=== PATIENT | female | born 1955 | race Caucasian/White ===

== ENCOUNTER 2023-06-01 08:46 | Oncology outpatient (recurring) (ONCR) | payer MEDICARE, OTHER, SELFPAY ==
[2023-06-01 10:20] LABS: Basophils % 0.4 %; Hematocrit 45.8 % (36-47); Lymphocytes # 1.2 10^3/uL (0.8-4.8); Lymphocytes % 16.7 %; Mean Corpuscular HGB Conc 31.9 g/dL (30-55); Mean Corpuscular Hemoglobin 29.1 pg (27-33); Mean Corpuscular Volume 91.2 fl (85-98); Mean Platelet Volume 8.5 fL (7.4-10.4); Monocytes # 0.5 10^3/uL (0.2-0.9); Monocytes % 6.7 %; Neutrophils # 5.41 10^3/uL (1.8-7.7); Neutrophils % 75.9 %; Nucleated Red Blood Cells % 0 %; Platelet Count 264 10^3/cmm (157-399); Red Blood Count 5.02 10^6/uL (3.85-5.65); Red Cell Distribution Width 13.4 % (12.1-15.1); White Blood Count 7.13 10^3/uL (3.29-11.43)
[2023-06-01 10:56] LABS: Alanine Aminotransferase 21 U/L (0-33); Albumin Level 4.1 g/dL (3.5-5.2); Alkaline Phosphatase 177 U/L (35-105); Anion Gap 12.3 (5-19); Aspartate Amino Transferase 18 U/L (0-32); Blood Urea Nitrogen 22 mg/dL (8-23); Calcium 9.3 mg/dL (8.5-10.5); Carbon Dioxide 24 mmol/L (22-29); Chloride 108 mmol/L (98-107); Free T4 Free Thyroxine 1.09 ng/dL (0.82-1.77); Globulin 2.9 g/dL (1.3-4.6); Glomerular Filtration Rate 62.1 mL/min (90-130); Glucose 111 mg/dL (65-115); Osmolality Calculated 294 mOsm/kg (285-295); Potassium 4.3 mmol/L (3.5-5.1); Sodium 140 mmol/L (136-145); Total Bilirubin 0.3 mg/dL (0.15-1.2)
== END 2023-06-29 23:59 | disposition home or self-care (01) ==
PROVIDERS: Visit Provider Internal Medicine
DX: R53.83 Other fatigue (principal); C34.12 Malignant neoplasm of upper lobe, left bronchus or lung; C34.32 Malignant neoplasm of lower lobe, left bronchus or lung; Z79.899 Other long term (current) drug therapy
CPT/HCPCS: 36415; 80053; 84439; 84443; 85025; 99204

== ENCOUNTER 2023-07-04 12:03 | Outpatient (CLI) | payer MEDICARE, OTHER, SELFPAY ==
--- NOTE | 2023-07-04 12:30 | CT_ITS ---
WS: [id number] CT chest w con* [id number] HISTORY: History of lung cancer. TECHNIQUE: Axial imaging performed through the thorax. Coronal and sagittal reformats are submitted. All CT scans at [facility] use at least one of these dose optimization techniques: automated exposure control; mA and/or kV adjustment per patient size (includes targeted exams where dose is mat ched to clinical indication); or iterative reconstruction. CONTRAST: Omnipaque 350; 100 mL IV. DLP: 565.45 mGy.cm COMPARISON: 04/13/2023 and PET/CT 10/29/2021 Lungs and central airway: Poor inspiration. Decreased lung volumes with dependent changes. There is b reathing motion artifact. No pulmonary nodule or mass is identified. Pleura: Normal. No pleural effusion. Heart and pericardium: Normal size heart. Coronary artery calcifications. Mediastinum and roddy: Mild bronchial wall thickening on the LEFT. There is also a small LEFT hilar ly mph node measuring 8 mm. No additional enlarged lymph nodes. Vessels: Mild atherosclerosis aorta. No aneurysm. Normal size pulmonary artery. Chest wall and lower neck: No soft tissue masses. Upper abdomen: Mild hepatic steatosis. Negative gallbladder. Cortical thinning and scarring at the up per pole of each kidney, LEFT greater than RIGHT. No adrenal mass. Osseous structures: Mild anterior wedging of T12. IMPRESSION: 1. Quality of this examination is compromised by poor inspiration and motion artifact. 2. There is very mild LEFT bronchial wall thickening. No pulmonary mass or nodule. 3. No significant mediastinal or hilar adenopathy. Note: There are no complete report associated with the prior chest CT of 04/13/2023 from an outside [facility]. If this report becomes available for review I would be happy to perform an addendum if there is an area of concern that was described in that report.
[2023-07-04] MEDS: iohexol 350 mg/mL 500 mL Btl (per mL) IV (12:59)
== END 2023-07-04 12:04 | disposition home or self-care (01) ==
LOC: RAD 12:04
PROVIDERS: PCP Family Medicine; Visit Provider Nurse Practitioner Family
DX: C34.12 Malignant neoplasm of upper lobe, left bronchus or lung (principal); C34.32 Malignant neoplasm of lower lobe, left bronchus or lung
CPT/HCPCS: 71260; Q9967

== ENCOUNTER 2023-07-13 14:16 | Oncology outpatient (recurring) (ONCR) | payer MEDICARE, OTHER, SELFPAY | END 2023-07-30 23:59 | disposition home or self-care (01) | PROVIDERS: PCP Family Medicine; Visit Provider Internal Medicine | DX: R53.83 Other fatigue (principal); C34.12 Malignant neoplasm of upper lobe, left bronchus or lung; C34.32 Malignant neoplasm of lower lobe, left bronchus or lung; Z79.899 Other long term (current) drug therapy | CPT/HCPCS: 99214 ==

== ENCOUNTER → 2023-12-11 12:27 | Outpatient (BNVA) | payer MEDICARE, OTHER, SELFPAY | PROVIDERS: PCP Family Medicine; Visit Provider Internal Medicine | DX: R07.9 Chest pain, unspecified (principal) | CPT/HCPCS: 93005; 99214 ==

== ENCOUNTER 2023-12-21 09:23 | Outpatient (CLI) | payer MEDICARE, OTHER, SELFPAY ==
[2023-12-21 09:44] VITALS: BMI 38.7
--- NOTE | 2023-12-21 09:48 | NMCV_ITS ---
NM jovan perf SPECT r/s* [id number] Stephanie Redd Age: 68 Gender: F : 1955 Exam Date: 12/21/2023 09:48 Ordering Phys: Carlos Gu M.D ([email or web address]) Technologist: REYNALDO Escamilla Exam Location: [facility] Indications: CHEST PAIN STRESS TEST [facility] IMAGE PROTOCOL Rest/Stress 1 Lexiscan Day Radiopharmaceutical Dose (mCi) Administration Site Administered by Rest: Tc-99m 10.5 IV REYNALDO Frazier Sestamibi Stress:Tc-99m 32.6 IV REYNALDO Frazier Sestamibi Rest: 21-Dec-2023 60 Discovery 630 Stress: 21-Dec-2023 30 Discovery 630 0.4mg Lexiscan. Images obtained in supine and prone position. SPECT RESULTS Technical Quality: Excellent Raw Data Analysis: Normal Image Corrections: No attenuation or motion correction applied Summed Stress Score: 0 Summed Rest Score: 3 Summed Difference Score: 0 PERFUSION FINDINGS SPECT images demonstrate homogeneous tracer distribution throughout the myocardium. FUNCTIONAL RESULTS (calculated via Gated SPECT) Stress Image LV EF (%): 77 Stress EDV (mL):75 TID: 1.05 Stress ESV (mL):17 FUNCTIONAL FINDINGS: There is normal left ventricular systolic function. IMPRESSIONS 1. Normal myocardial perfusion imaging with no evidence of ischemia 2. LV systolic function is normal Carlos Gu MD (Electronically Signed) Final Date: 22 Dec 2023 13:05 S
--- NOTE | 2023-12-21 09:48 | ECG_ITS ---
[facility] Test Date: 2023-12-21 Pat Name: Stephanie Redd Department: Room: Gender: Female Buyer Assistant: : 1955 Requested By: Carlos Gu Order Number: [id number] Ethel MD: Carlos Gu M.D. Interpretive Statements NAME OF STUDY: LEXISCAN SESTAMIBI STRESS TEST INDICATION: [Chest Pain; Shortness of Breath] Procedure: At the baseline, the blood pressure was 138/83 mmHg with a heart rate of 73 bpm. The electrocardiogram showed normal sinus rhythm, normal axis with normal ST and T's. The Lexiscan was infused over a period of 20 seconds. A total of 0.4 mg of Lexiscan was infused. The stress phase was continued for a total of 5 minutes. Heart rate was at the end of stress phase was 82 bpm and a blood pressure of 143/85 mmHg. The EKG at the peak infusion revealed normal sinus rhythm with no significant ST-T wave changes. Sestamibi was injected 20 seconds after the Lexiscan infusion. Blood pressure at the end of recovery phase was 138/90 mmHg with a heart rate of 77 bpm.PVCs seen in recovery Conclusion: 1. Normal EKG response to Lexiscan infusion 2. No Lexiscan induced chest pain or cardiac arrhythmia. 3. Normal blood pressure and heart rate response. 4. Sestamibi/sestamibi perfusion scan pending; see separate report. Electronically Signed On 12-25-2023 16:29:13 CDT by Carlos Gu M.D. [id number]
[2023-12-21] MEDS: regadenoson 0.4 Mg/5 ml Syringe 0.400000000000000022 MG IVP (11:25)
[2023-12-21 11:35] VITALS: BP 145/64; PULSE 66
== END 2023-12-21 09:24 | disposition home or self-care (01) ==
PROVIDERS: PCP Family Medicine; Visit Provider Internal Medicine
DX: R07.9 Chest pain, unspecified (principal); R06.02 Shortness of breath; I10 Essential (primary) hypertension; R06.00 Dyspnea, unspecified; F17.210 Nicotine dependence, cigarettes, uncomplicated; R94.31 Abnormal electrocardiogram [ECG] [EKG]
CPT/HCPCS: 36415; 78452; 93017; 93306; 96374; A9500; J2785

== ENCOUNTER 2024-01-09 14:02 | Oncology outpatient (recurring) (ONCR) | payer MEDICARE, OTHER, SELFPAY ==
[2024-01-09 14:47] LABS: Blood Urea Nitrogen 17 mg/dL (8-23); Glomerular Filtration Rate 54.8 mL/min (90-130)
[2024-01-09] MEDS: iohexol 350 mg/mL 500 mL Btl (per mL) IV (14:59)
--- NOTE | 2024-01-09 15:00 | CT_ITS ---
WS: [id number] CT CHEST TECHNIQUE: Contrast enhanced CT of the chest with coronal and sagittal reformatted images. CLINICAL INFORMATION: lung cancer COMPARISON: 07/04/2023 and PET/CT 10/29/2021 DLP: 655.[address] scans at [facility] use at least one of these dose optimization techniques: automated e xposure control; mA and/or kV adjustment per patient size (includes targeted exams where dose is matc hed to clinical indication); or iterative reconstruction. FINDINGS: Slightly spiculated LEFT upper lobe pulmonary nodule along the fissure measuring approximately 7-8 mm . This has increased in size today it was difficult to visualize on the prior study. Previously this measured approximately 6 to 7 mm. No mediastinal or hilar lymphadenopathy. Chronic emphysematous changes. Bibasilar atelectasis. Aortic calcification. Coronary calcification. N o mediastinal or hilar lymphadenopathy. No axillary lymphadenopathy. Fluid distended gallbladder part ially visualized. No gallbladder wall thickening. Mild diffuse fatty infiltration of the liver. Small splenule. Small esophageal hiatal hernia. Fatty atrophy of the pancreas. Aortic calcification. Adren al glands are normal. Mild thoracic curve. Mild thoracic kyphosis. CT/CT chest w con* [id number] IMPRESSION: 1. Slightly spiculated LEFT upper lobe pulmonary nodule along the fissure bett er visualized today measuring approximately 7-8 mm in maximum dimension. This m easures approximately 6 mm previous and on the prior outside study. Findings love spicious for small neoplasm This is borderline in size for evaluation by PET/CT . Otherwise recommend chest CT 6-month follow-up and pulmonary consultation. 2. Small nodule or bronchovascular thickening along the LEFT hilum. This is be st seen on the coronal imaging.
== END 2024-01-28 23:59 | disposition home or self-care (01) ==
PROVIDERS: PCP Family Medicine; Visit Provider Internal Medicine
DX: R53.83 Other fatigue (principal); C34.12 Malignant neoplasm of upper lobe, left bronchus or lung; C34.32 Malignant neoplasm of lower lobe, left bronchus or lung; Z79.899 Other long term (current) drug therapy
CPT/HCPCS: 71260; 82565; 84520; Q9967

== ENCOUNTER 2024-01-29 12:00 | Oncology outpatient (recurring) (ONCR) | payer MEDICARE, OTHER, SELFPAY ==
[2024-01-29 12:43] LABS: Basophils % 0.6 %; Eosinophils # 0.1 10^3/uL (0.0-0.8); Eosinophils % 1.3 %; Hematocrit 42.3 % (36-47); Lymphocytes # 1.2 10^3/uL (0.8-4.8); Lymphocytes % 16.9 %; Mean Corpuscular HGB Conc 31.4 g/dL (30-55); Mean Corpuscular Hemoglobin 28.4 pg (27-33); Mean Corpuscular Volume 90.4 fl (85-98); Mean Platelet Volume 8.6 fL (7.4-10.4); Monocytes # 0.5 10^3/uL (0.2-0.9); Neutrophils # 5.02 10^3/uL (1.8-7.7); Neutrophils % 73.8 %; Nucleated Red Blood Cells % 0 %; Platelet Count 269 10^3/cmm (157-399); Red Blood Count 4.68 10^6/uL (3.85-5.65); Red Cell Distribution Width 13.8 % (12.1-15.1); White Blood Count 6.81 10^3/uL (3.29-11.43)
[2024-01-29 13:14] LABS: Alanine Aminotransferase 23 U/L (0-33); Albumin Level 3.8 g/dL (3.5-5.2); Alkaline Phosphatase 256 U/L (35-105); Anion Gap 16.6 (5-19); Aspartate Amino Transferase 29 U/L (0-32); Blood Urea Nitrogen 21 mg/dL (8-23); Carbon Dioxide 24 mmol/L (22-29); Chloride 98 mmol/L (98-107); Globulin 3.3 g/dL (1.3-4.6); Glomerular Filtration Rate 54.8 mL/min (90-130); Glucose 157 mg/dL (65-115); Osmolality Calculated 286 mOsm/kg (285-295); Potassium 3.6 mmol/L (3.5-5.1); Sodium 135 mmol/L (136-145); Thyroid Stimulating Hormone 2.75 uIU/mL (0.27-4.20); Total Bilirubin 0.4 mg/dL (0.15-1.2); Total Protein 7.1 g/dL (6.6-8.7)
== END 2024-02-28 23:59 | disposition home or self-care (01) ==
PROVIDERS: PCP Family Medicine; Visit Provider Internal Medicine
DX: C34.12 Malignant neoplasm of upper lobe, left bronchus or lung; C34.32 Malignant neoplasm of lower lobe, left bronchus or lung; Z79.899 Other long term (current) drug therapy; F17.210 Nicotine dependence, cigarettes, uncomplicated
CPT/HCPCS: 36415; 80053; 84443; 85025; 99213

== ENCOUNTER 2024-03-05 10:08 | Outpatient (CLI) | payer MEDICARE, OTHER, SELFPAY ==
--- NOTE | 2024-03-05 11:30 | PETR_ITS ---
PROCEDURE INFORMATION: Exam: PET/CT Skull Base to Mid-thigh Exam date and time: 03/05/2024 11:19 AM Age: 69 years old Clinical indication: Condition or disease; Primary cancer: Left lobe lung neoplasm; Follow-up oncological assessment; Additional info: Staging LABS AND CLINICAL REPORTS: Glucose: 149 mg/dl Treatment strategy for malignancy (PET staging): Restaging (PS) TECHNIQUE: Imaging protocol: Following at least four-hour fasting and following the injection of radiopharmaceutical, low dose CT images were obtained. Then, PET images were obtained. Attenuation corrected images were constructed using the CT scan. Fused images of PET and CT were reviewed. The standardized uptake values (SUV) reported below are maximum values within a region of interest, expressed in gm/ml. Exam includes orbital meatal line to mid-thigh. Radiopharmaceutical: 11.54 mCi F-18 FDG (Fluorodeoxyglucose), IV. Time of imaging post radiopharmaceutical administration: 1 hour Injection site: Right antecubital COMPARISON: CT chest 01/09/2024, CT chest 07/04/2023, PT PET Scan 10/29/2021 12:16 PM FINDINGS: Brain: Visualized brain has normal physiologic uptake. Oral cavity: A low vertically oriented linear region of elevated uptake involving the anterior tongue is likely physiologic in nature, without a definite correlating lesion on the CT images. Assessment of this region is limited by streak artifact. Pharynx: No abnormal uptake. Larynx: Uptake in the region of the hyoid bone and larynx appears physiologic. Lungs, pleura and trachea: A radiotracer avid solid posterior left upper lobe nodule measures 1.1 x 0.8 cm (previously 7-[address] chest of 01/09/2024) on series 202, image 252, SUV max 12.4. Mild bilateral centrilobular emphysematous changes. Heart: Normal physiologic uptake. Mediastinal space: No abnormal uptake. Liver: No abnormal uptake. Gallbladder and biliary ducts: No abnormal uptake. Pancreas: No abnormal uptake. Spleen: No abnormal uptake. Adrenal glands: No discrete adrenal nodules are identified. Uptake in the left adrenal gland is new and demonstrates an SUV max 7.1 on image 171, and new uptake in the right adrenal gland demonstrates an SUV max 3.7 on image 186. Kidneys and ureters: Normal physiologic uptake. Stomach and bowel: No abnormal uptake. There are scattered colonic diverticula. Reproductive: The uterus is not identified, likely surgically absent. No abnormal uptake. Vasculature: No abnormal uptake. There are diffuse atherosclerotic changes. Lymph nodes: Elevated uptake within bilateral axillary lymph nodes is noted. These lymph nodes are similar in size since at least the prior PET-CT 10/29/2021, however, the uptake is new since the prior PET-CT. A left axillary lymph node measuring approximately 1.1 cm on image 271 is noted, SUV max 4.2. A more inferiorly located left axillary lymph node measures 2.3 x 1.0 cm on image 254, SUV max 9.3; a right axillary lymph node measures approximately 2.8 x 0.7 cm on image 254, SUV max 3.7. A right axillary lymph node measuring 1.5 x 0.7 cm demonstrates an SUV max 4.3 on image 265. A similar in size left inguinal region lymph node measuring 8 mm on image 84 is noted with new uptake, SUV max 3.9. Previously noted focal elevated uptake in the left hilar region on the prior PET-CT has significantly decreased, SUV max 4.0 (previously 6.7) on image 103. Skeleton: A focus of abnormal uptake in the right lateral aspect of the L5 vertebral body is new since the prior PET-CT, without a well-defined correlating lesion on the CT images, SUV max 5.5 on image 122. The region of uptake measures approximately 6 mm in diameter. Degenerative changes in the spine are noted an old, mild compression deformity of the T12 vertebral body is present. A posterolateral left 6th rib osteotomy is noted. Soft tissues: There are multifocal regions of benign-appearing muscular uptake, likely physiologic or inflammatory. Elevated uptake is identified in the intercostal musculature between the posterior left 6th and 7th ribs is noted near the 6th rib osteotomy site which is new since the prior PET-CT, SUV max 4.5 on image 233, without a correlating lesion on the CT images. METRICS: Mediastinal blood pool: SUV max 4.3, SUV mean 3.1 PET/PET skull to thigh SUBS [id number] IMPRESSION: 1. A solid left upper lobe nodule has increased in size compared with 01/09/2024 and demonstrates elevated uptake compatible with malignancy. 2. New uptake within bilateral axillary and left inguinal lymph nodes since the prior PET-CT. Although these lymph nodes have not changed in size since the prior PET-CT, malignant involvement cannot be excluded. Infectious or inflammatory uptake may alternatively account for this appearance. 3. Interval significant decrease in uptake in the left hilar region which may represent decreasing malignancy or inflammatory changes. 4. Uptake in the intercostal musculature adjacent to the left 6th rib osteotomy site is noted, likely inflammatory. A malignant etiology is less likely. 5. A single new small focus of elevated uptake in the osseous structures involving the L4 vertebral body on the right is present, possibly representing a metastasis. Consider dedicated lumbar spine MRI with and without contrast for further assessment. 6. New uptake within the bilateral adrenal glands is noted, without definitive evidence of nodularity on the CT images. This uptake may be physiologic or inflammatory in etiology. A malignant metastatic etiology is less likely but cannot be entirely excluded. 7. Additional nonurgent findings as detailed above.
== END 2024-03-05 10:09 | disposition home or self-care (01) ==
LOC: RAD 10:08
PROVIDERS: PCP Family Medicine; Visit Provider Internal Medicine Medical Oncology
DX: C34.32 Malignant neoplasm of lower lobe, left bronchus or lung (principal); C34.12 Malignant neoplasm of upper lobe, left bronchus or lung; R93.89 Abnormal findings on diagnostic imaging of other specified body structures; R59.0 Localized enlarged lymph nodes
CPT/HCPCS: 78815; A9552

== ENCOUNTER 2024-03-21 08:56 | Oncology outpatient (recurring) (ONCR) | payer MEDICARE, OTHER, SELFPAY | END 2024-03-30 23:55 | disposition home or self-care (01) | LOC: ONCMED 08:56 | PROVIDERS: PCP Family Medicine; Visit Provider Internal Medicine Medical Oncology | DX: C34.12 Malignant neoplasm of upper lobe, left bronchus or lung; F17.210 Nicotine dependence, cigarettes, uncomplicated; Z92.3 Personal history of irradiation | CPT/HCPCS: 99215 ==

== ENCOUNTER 2024-04-17 08:39 | Oncology outpatient (recurring) (ONCR) | payer MEDICARE, OTHER, SELFPAY ==
--- NOTE | 2024-04-17 10:25 | N.ONRAD NP_ITS ---
Radiation Oncology New Patient Visit Patient: Stephanie Redd MR#: [id number] : 1955> Age: 69> Sex: Female> Dictated by: Dr. Kendy Saunders Date of Service: 04/17/2024 Referring Physician(s) : Dr. Ingram Diagnosis: Squamous cell carcinoma left lung Radiotherapy to date: Summary > SBRT left lower lobe 2019 with 54 Miramontes in 3 fractions. Hypofractionated treatment in 2021 to the left endobronchial lesion for a total of 60 Miramontes Chief Complaint / History of Present Illness: Patient has had no real changes in her overall problems with her emphysema. She was having screening scans done and the most recent PET scan showed a left upper lobe mass that was 1.1 x 0.8 cm in size. There was also question of a questionable spot in L4. Subjectively she is actually doing fairly well. She has no real changes in cough or breathing. She did have a fall mid February and is still recovering from that. She also has been dealing with an inner ear infection and has had occasional pneumonia. She is here today to discuss SBRT to the left upper lobe. Her records have been obtained from her prior radiation treatments. Current Medications: albuterol sulfate 2.5 mg (0.5 mL) inhalation TID albuterol sulfate 90 mcg/actuation 2 puffs inhalation QID PRN ascorbic acid (vitamin C) ER 500 mg PO DAILY aspirin 81 mg PO DAILY atorvastatin 40 mg PO DAILY benzonatate 200 mg PO TID PRN cholecalciferol (vitamin D3) 10 mcg PO DAILY diltiazem HCl 240 mg PO BID docusate sodium (Stool Softener) 100 mg PO DAILY fluticasone propionate 50 mcg/actuation 1 spray intranasal DAILY PRN [id number]-[id number]-[id number] 100-62.5-25 mcg (Trelegy Ellipta) 1 inh inhalation DAILY PRN furosemide 20 mg PO garlic 100 mg PO DAILY hydrochlorothiazide 12.5 mg PO DAILY omeprazole 40 mg PO DAILY potassium chloride ER 8 mEq PO DAILY vitamin B complex (B Complex-Vitamin B12 tablet) 1 tab PO DAILY MDD 500 mcg Allergies: nka Medical History: COPD (chronic obstructive pulmonary disease) GERD (gastroesophageal reflux disease) Hyperlipidemia Hypertension Tobacco abuse 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 Vital Signs: Performed on 04/17/2024 8:47 AM BMI - 39.221 kg/m2 (high), Height - 66 in, Weight - 243 lbs, Temperature - 96.8 f, Pulse - 77 /min, Respiration - 18 /min, O2 Sat - 97 %, Pain - 0, Fatigue - 0 and BP - 150/ 76 mm(hg)(high/). Physical Exam: General: Patient is in no apparent distress. She is alone today. HEENT: Normocephalic atraumatic. Pupils are equal, sclera clear, extraocular muscles intact Pulmonary: Respiratory rate is regular and nonlabored Cardiovascular: Regular rate and rhythm Abdomen: Soft and nontender Extremities: Without edema or lymphedema Neurological: Alert and orient x 3. Gait and speech within normal limits Psychologic: Affect appropriate for current situation Performance Status: ECOG 2 Pathology: Squamous of carcinoma Imaging: See HPI Impression: New lesion in a patient with 2 prior areas of squamous cell carcinoma of the left lung Plan: I reviewed with her the prior radiation treatments that she has had. We talked about the simulation process and the daily treatment regiment. We reviewed the risks and side effects both acute and long-term. She really did not have any issues with her first SBRT treatment. She did feel like the second round of treatment was a little bit more toxic and she had been fatigued with that. At this point she had no additional questions or concerns. We talked about a 4-day course over 1 to 2 weeks depending on whether she would like to come every day or do 2 treatments a week. At this point she requested we schedule the simulation to coordinate with an appointment she has next Monday. Her appointment then is for an MRI of her head. Will do her simulation just prior to that. She otherwise has agreed to proceed with treatment and we will coordinate with her appointments. Plan for 4 treatments of 12 Miramontes over 1 to 2 weeks based on her schedule. Signed by: 04/17/2024 10:23:35 AM <<Signature on File>> Time spent with patient:35 CPT Code: CPT Code:
== END 2024-04-29 23:59 | disposition home or self-care (01) ==
LOC: ONCMED 08:40
PROVIDERS: PCP Family Medicine; Visit Provider Internal Medicine Medical Oncology
DX: C34.12 Malignant neoplasm of upper lobe, left bronchus or lung (principal); F17.210 Nicotine dependence, cigarettes, uncomplicated
CPT/HCPCS: 99205

== ENCOUNTER 2024-06-24 09:44 | Oncology outpatient (recurring) (ONCR) | payer MEDICARE, OTHER, SELFPAY | END 2024-06-29 23:59 | disposition home or self-care (01) | PROVIDERS: PCP Family Medicine; Visit Provider Radiology Radiation Oncology | DX: Z51.0 Encounter for antineoplastic radiation therapy (principal); C34.12 Malignant neoplasm of upper lobe, left bronchus or lung | CPT/HCPCS: 77300; 77301; 77334; 77338; 77470 ==

== ENCOUNTER 2024-07-10 08:08 | Oncology outpatient (recurring) (ONCR) | payer MEDICARE, OTHER, SELFPAY | END 2024-07-10 23:59 | disposition home or self-care (01) | PROVIDERS: PCP Family Medicine; Visit Provider Radiology Radiation Oncology | DX: C34.12 Malignant neoplasm of upper lobe, left bronchus or lung (principal); Z51.0 Encounter for antineoplastic radiation therapy | CPT/HCPCS: 77336; 77373 ==

== ENCOUNTER 2024-09-13 09:30 | Oncology outpatient (recurring) (ONCR) | payer MEDICARE, OTHER, SELFPAY ==
--- NOTE | 2024-09-02 10:30 | ONCRAD EPV_ITS ---
Radiation Oncology Established Patient Visit Patient: Tramaine Brown [id number] : 1955> Age: 69> Sex: Female> Dictated by: Dr. Kendy Saunders Date of Service: 09/02/2024 Referring Physician(s) : Diagnosis: C34.12 - Malignant neoplasm of upper lobe, left bronchus or lung, Diagnosed 04/17/2024 (Active) Subjective: Patient returns today 1 month after completing SBRT for her left upper lung cancer. She says since completing treatment she has had some episodes of chills. She also has begun to lose her hair in handfuls. Her skin is dry. Her energy level is dropped considerably. She has no appetite. Radiotherapy to Date: Course: MANISH lung, Treatment Site: [facility] SBRT 2023, Ref. ID: [id number], Energy: 6X, Dose/Fx (cGy): 1,200, #Fx: 4 / 4, Dose Correction (cGy): 0, Total Dose Delivered (cGy): 4,800, Start Date: 07/02/2024, End Date: 07/10/2024, Elapsed Days: 8 Current History: Current Medications: Allergies: Current Complaints / Review of Systems: . Vital Signs: Performed on 09/02/2024 9:41 AM BMI - 35.961 kg/m2 (high), Height - 66 in, Weight - 222.8 lbs, Temperature - 96.7 f, Pulse - 94 /min, Respiration - 18 /min, O2 Sat - 97 %, Pain - 5, Fatigue - 0 and BP - 126/ 70 mm(hg). Physical Exam: General: Alert and oriented x 3. No acute distress. HEENT pupils are equal round reactive to light, sclera clear, extraocular muscles intact. Her hair is coming out in handfuls when she pulls on it.. LUNGS: Respiratory rate is regular nonlabored. Performance Status: 90 Lab: None pending. Pathology: Primary, c34.12 - malignant neoplasm of upper lobe, left bronchus or lung, Diagnosed 04/17/2024 (active) . Imaging: See HPI Impression: SBRT to the left lung Plan: At this point the patient has recovered from her treatments. We talked about her symptoms are more indicative of hypothyroidism then anything we would see with the radiation treatments. She verbalized understanding of this. And she is agreed to have blood drawn today. Will get those results sent to her primary care soon as possible. She will otherwise return in [address] scan. She declines PET scans at this point because apparently she was active's to pay $1500 at her last PET scan and then her insurance company covered nearly all of it. She has yet to get a refund from the health system. Signed by: 09/02/2024 10:29:46 AM <<Signature on File>> Time spent with patient: 20 CPT Code: CPT Code:
[2024-09-02 11:44] LABS: Free T4 Free Thyroxine 0.99 ng/dL (0.82-1.77); Thyroid Stimulating Hormone 2.56 uIU/mL (0.27-4.20)
--- NOTE | 2024-09-13 09:30 | PETR_ITS ---
PROCEDURE INFORMATION: Exam: PET/CT Skull Base to Mid-thigh Exam date and time: 09/13/2024 10:59 AM Age: 69 years old Clinical indication: Condition or disease; Primary cancer: Lung cancer; Follow-up oncological assessment; Additional info: Lung CA sp sbrt LABS AND CLINICAL REPORTS: Glucose: 122 mg/dl Treatment strategy for malignancy (PET staging): Restaging (PS) TECHNIQUE: Imaging protocol: Following at least four-hour fasting and following the injection of radiopharmaceutical, low dose CT images were obtained. Then, PET images were obtained. Attenuation corrected images were constructed using the CT scan. Fused images of PET and CT were reviewed. The standardized uptake values (SUV) reported below are maximum values within a region of interest, expressed in gm/ml. Exam includes orbital meatal line to mid-thigh. SUV normalization method: BodyWeight Radiopharmaceutical: 11.05 mCi F-18 FDG (Fluorodeoxyglucose), IV. Time of imaging post radiopharmaceutical administration: 50 minutes Injection site: right ac COMPARISON: PT PET skull to thigh SUBS [id number] 03/05/2024 11:19 AM FINDINGS: Brain: Visualized brain has normal physiologic uptake. Pharynx: No abnormal uptake. Larynx: No abnormal uptake. Lungs, pleura and trachea: Decreased size left upper lobe nodule measures approximately 1.0 x 0.6 cm on axial image 85 of series 202, previously 1.1 x 0.8 cm. Developed surrounding ground-glass attenuation and reticulation with triangular FDG uptake showing SUV max 5.4 on axial image 84. Left upper lobe nodule previously showed SUV max 12.4. Mild dependent atelectasis and bibasilar platelike atelectasis versus scarring. No dense consolidation or mass. No new pulmonary nodule. Heart: Normal physiologic uptake. Coronary arteries: Moderate coronary artery calcification. Mediastinal space: No abnormal uptake. Liver: No abnormal uptake. Gallbladder and biliary ducts: Masslike thickening at the gallbladder fundus with associated FDG uptake showing SUV max 12.4. Possible slight adjacent fat stranding versus motion artifact. Pancreas: No abnormal uptake. Spleen: No abnormal uptake. Adrenal glands: No abnormal uptake. Kidneys and ureters: Normal physiologic uptake. Stomach and bowel: No abnormal uptake. Colonic diverticulosis without findings of diverticulitis. Reproductive: The uterus is surgically absent. Vasculature: No abnormal uptake. Heavy systemic atherosclerotic calcification without aortic aneurysm. Lymph nodes: FDG uptake at 2 nonenlarged right axillary lymph nodes, index showing SUV max 7.2 on axial image 81, previously 4.3. Two normal size left axillary lymph nodes with decreased FDG uptake, index showing SUV max 2.2 on axial image 83, previously 9.3. Otherwise no lymphadenopathy in the head, neck, chest, abdomen, pelvis, and extremities. Skeleton: Resolution of previous right L4 vertebral body focal FDG uptake. Moderate L5-S1 degenerative change. Otherwise mild degenerative change along the spine and acromioclavicular joints. Soft tissues: Decreased low-level FDG uptake adjacent to left 6th rib osteotomy site. Small fat containing umbilical hernia. METRICS: Mediastinal blood pool: SUV mean 2.7 Liver uptake: SUV mean 3.2 PET/PET skull to thigh SUBS [id number] IMPRESSION: 1. Left upper lobe nodule shows good treatment response with decreased size and FDG uptake. Unable to accurately assess if there is residual intrinsic FDG uptake at the nodule given surrounding triangular FDG uptake with underlying ground-glass reticulation that likely represents inflammation/posttreatment change. 2. Increased FDG uptake at 2 nonenlarged right axillary lymph nodes. These may be reactive and/or related to injection, metastatic disease possible given interval persistence with increased uptake. 3. Developed FDG avid masslike thickening at the gallbladder fundus. Although this could be inflammatory, concern for malignancy. 4. Decreased FDG uptake of nonenlarged left axillary lymph nodes now below mediastinal blood pool. 5. Resolved focal FDG uptake at the right L4 vertebral body. 6. Additional chronic and incidental findings as above, to include atherosclerosis and colonic diverticulosis.
== END 2024-09-27 23:59 | disposition home or self-care (01) ==
LOC: RAD 09:40 → ONCMED 09:40
PROVIDERS: PCP Family Medicine; Visit Provider Radiology Radiation Oncology
DX: Z53.9 Procedure and treatment not carried out, unspecified reason; C34.12 Malignant neoplasm of upper lobe, left bronchus or lung; Z92.3 Personal history of irradiation; I25.10 Atherosclerotic heart disease of native coronary artery without angina pectoris; K57.30 Diverticulosis of large intestine without perforation or abscess without bleeding
CPT/HCPCS: 36415; 78815; 84439; 84443; 99024; A9552

== ENCOUNTER 2024-10-02 09:17 | Oncology outpatient (recurring) (ONCR) | payer MEDICARE, OTHER, SELFPAY ==
--- NOTE | 2024-10-02 10:15 | US_ITS ---
WS: [id number] RIGHT UPPER QUADRANT ULTRASOUND HISTORY: abnormal pet COMPARISON: PET/CT 09/13/2024, chest CT 01/09/2024 Liver: 12.2 cm in length. Normal size liver and echogenicity. No bile duct dilatation or mass. Portal Vein: Normal hepatopetal flow with monophasic waveform. Gallbladder: Abnormal gallbladder. The gallbladder is contracted with shadowing from stones. Gallbladder wall as visualized appears thickened. CBD: 0.9 cm Pancreas: Not well visualized. Right kidney: 8.3 cm in length. Normal size and echogenicity. No hydronephrosis or mass. Aorta and IVC: Unremarkable abdominal aorta and IVC. No ascites. US/US gall bladder [id number] IMPRESSION: 1. Abnormal gallbladder. Gallbladder is markedly contracted and there is shado wing suggesting stones from the gallbladder fossa. There is wall thickening. Ne w finding since the CT of 01/09/2024. On that prior CT the gallbladder was well distended. With positive PET/CT findings of the gallbladder consider cholecysti tis. Mass would be difficult to exclude involving the gallbladder due to its co ntraction. 2. Dilated common bile duct. Consider follow-up MRCP imaging. 3. Consider surgical evaluation.
== END 2024-10-28 23:59 | disposition home or self-care (01) ==
LOC: RAD 09:19 → ONCMED 09:31
PROVIDERS: PCP Family Medicine; Visit Provider Radiology Radiation Oncology
DX: C34.12 Malignant neoplasm of upper lobe, left bronchus or lung (principal); R93.2 Abnormal findings on diagnostic imaging of liver and biliary tract
CPT/HCPCS: 76705

== ENCOUNTER 2024-11-11 09:51 | Oncology outpatient (recurring) (ONCR) | payer MEDICARE, OTHER, SELFPAY ==
[2024-11-11 10:46] LABS: Blood Urea Nitrogen 22 mg/dL (8-23); Glomerular Filtration Rate 54.8 mL/min (90-130)
[2024-11-11] MEDS: iohexol 350 mg/mL 500 mL Btl (per mL) IV (10:59)
--- NOTE | 2024-11-11 11:00 | CT_ITS ---
WS: [id number] CT chest w con* [id number] HISTORY: lung ca TECHNIQUE: Axial imaging performed through the thorax. Coronal and sagittal reformats are submitted. All CT scans at [facility] use at least one of these dose optimization techniques: automated exposure control; mA and/or kV adjustment per patient size (includes targeted exams where dose is matched to clinical indication); or iterative reconstruction. CONTRAST: Omnipaque 350; 100 mL IV. DLP: 587.15 mGy.cm COMPARISON: 01/09/2024, 01/09/2024, 07/04/2023, PET/CT 09/13/2024 Lungs and central airway: Decreased lung volume with dependent changes and motion artifact. Treated LEFT upper lobe nodule is less well-visualized today secondary to the treatment. There is surrounding soft tissue thickening at the site of the nodule in the LEFT upper lobe which is posttreatment in etiology. Recommend continued close follow-up. No pulmonary mass or nodule otherwise. Subsegmental atelectasis LEFT lower lobe. Pleura: Normal. No pleural effusion. Heart and pericardium: Mild cardiomegaly. Mediastinum and roddy: No mediastinum or hilar adenopathy. Vessels: Moderate atherosclerosis aorta. Normal size pulmonary artery. Coronary artery calcifications. Chest wall and lower neck: Small axillary lymph nodes. No enlarged lymph nodes. Upper abdomen: Abnormal gallbladder. Continued soft tissue thickening and masslike attenuation at the gallbladder including the gallbladder fossa. There is abnormal enhancement. No stones identified by CT. Shadowing of the gallbladder on the recent CT suggested stones. Osseous structures: No destructive process. CT/CT chest w con* [id number] IMPRESSION: 1. Posttreatment changes associated with the PET/CT positive nodule in the LEF T upper lobe. Posttreatment changes of fibrosis and pneumonitis. Recommend cont inued serial CT evaluation. No new mass or nodule. 2. No mediastinal or hilar adenopathy. 3. Abnormal gallbladder. PET/CT positive gallbladder and gallbladder was also abnormal on ultrasound. There is soft tissue thickening and masslike attenuatio n. Recommend surgical evaluation for possible cholecystectomy. Gallbladder neop lasm is not excluded. There are inflammatory changes surrounding the gallbladde r.
== END 2024-11-27 23:59 | disposition home or self-care (01) ==
LOC: RAD 09:53 → ONCMED 11-12 09:34
PROVIDERS: PCP Family Medicine; Visit Provider Radiology Radiation Oncology
DX: C34.12 Malignant neoplasm of upper lobe, left bronchus or lung (principal); R93.2 Abnormal findings on diagnostic imaging of liver and biliary tract
CPT/HCPCS: 71260; 82565; 84520

== ENCOUNTER → 2024-12-03 09:53 | Outpatient (BNVA) | payer MEDICARE, OTHER, SELFPAY | PROVIDERS: PCP Family Medicine; Visit Provider Surgery | DX: K82.8 Other specified diseases of gallbladder (principal); K82.9 Disease of gallbladder, unspecified | CPT/HCPCS: 36415; 80048; 80076; 83735; 85025; 99204 ==

== ENCOUNTER 2024-12-16 09:05 | Oncology outpatient (recurring) (ONCR) | payer MEDICARE, OTHER, SELFPAY ==
--- NOTE | 2024-12-16 09:30 | MR_ITS ---
WS: [id number] MRCP (MAGNETIC RESONANCE CHOLANGIOPANCREATOGRAPHY) HISTORY: gallbladder mass COMPARISON: PET/CT 09/13/2024, gallbladder ultrasound 10/02/2024 TECHNIQUE: Multiple sequences are performed to evaluate the intra and extrahepatic ducts. No intrahepatic duct dilatation. Normal common bile duct size at 6 mm. There are no filling defects. Pancreatic duct is normal. Mild hepatic steatosis. Normal size liver and spleen. Normal pancreas. Abnormal gallbladder. There are stones within the gallbladder. As noted on prior PET/CT and ultrasound the gallbladder wall is abnormal. There is marked soft tissue thickening involving the gallbladder wall and surrounding the stones. Gallbladder wall thickening measures up to 1.7 cm laterally. No adjacent lymph nodes identified. Please note this study was performed as an MRCP which does not include IV contrast. There are a few areas of cortical thinning and scarring involving the LEFT kidney. Normal appearance of the adrenal glands. No ascites or pleural effusions. No mesenteric adenopathy. MR/MR MRCP [id number] IMPRESSION: 1. Normal sized common bile duct. No choledocholithiasis or obstruction. 2. 3. Abnormal gallbladder which has been previously described and suspicious for gallbladder carcinoma until proven otherwise. There is marked asymmetric gallb ladder wall thickening. Please note MRCP examination is focused on the ducts. N o IV contrast was given for this exam but the gallbladder does remain abnormal.
== END 2024-12-28 23:59 | disposition home or self-care (01) ==
LOC: RAD 09:06 → ONCMED 09:14
PROVIDERS: PCP Family Medicine; Visit Provider Surgery
DX: K82.8 Other specified diseases of gallbladder (principal); R93.3 Abnormal findings on diagnostic imaging of other parts of digestive tract; K76.0 Fatty (change of) liver, not elsewhere classified; K80.20 Calculus of gallbladder without cholecystitis without obstruction; R93.422 Abnormal radiologic findings on diagnostic imaging of left kidney
CPT/HCPCS: 74181

== ENCOUNTER → 2025-01-13 10:29 | Outpatient (BNVA) | payer MEDICARE, OTHER, SELFPAY | PROVIDERS: PCP Family Medicine; Visit Provider Student in an Organized Health Care Education/Training Program | DX: K82.9 Disease of gallbladder, unspecified (principal); K82.8 Other specified diseases of gallbladder | CPT/HCPCS: 99204 ==